=== PATIENT | female | born 1955 | race Caucasian/White ===

== ENCOUNTER → 2023-12-04 | Outpatient (REF) | payer OTHER, MEDICAID ==
[2023-12-04 18:24] LABS: CREATININE,RANDOM URINE 22.8 MG/DL
[2023-12-04 18:25] LABS: TOTAL PROTEIN,RANDOM URINE < 6.0 MG/DL (0.0-14.0)
== END ==
LOC: M LAB REF 17:28
PROVIDERS: ATTEND Internal Medicine Nephrology
DX: N18.31 Chronic kidney disease, stage 3a (principal)